=== PATIENT | male | born 1970 | race Caucasian/White ===

== ENCOUNTER 2017-03-18 06:52 | Emergency (ER) | payer OTHER ==
[2017-03-18 07:19] LABS: BASO % 0.3 % (0.2-1.2); EOS # 0.4 10_X3_uL (0.0-0.5); EOS % 4.7 % (0.8-7.0); GRAN # 5.2 10_X3_uL (1.8-5.4); GRAN % 58.9 % (34.0-67.9); HEMATOCRIT 43.3 % (40-51); HEMOGLOBIN 14.8 g/dL (13.7-17.5); LYMPH # 2.5 10_X3_uL (1.3-3.6); LYMPH % 28.3 % (21.8-53.1); MEAN CORPUSCULAR HEMOGLOBIN 30.5 pg (27.0-33.0); MEAN CORPUSCULAR HGB CONC 34.2 g/dL (32.0-36.0); MEAN CORPUSCULAR VOLUME 89.3 fL (79-92); MEAN PLATELET VOLUME 10.7 fl (7.5-11.5); MONO # 0.7 10_X3_uL (0.3-0.8); MONO % 7.8 % (5.3-12.2); PLATELET COUNT 189 x10_3/uL (163-337); RED BLOOD COUNT 4.85 x10_6/uL (4.6-6.1); RED CELL DISTRIBUTION WIDTH 13.3 % (11.6-14.4); WHITE BLOOD COUNT 8.8 x10_3/uL (4.2-9.1)
[2017-03-18 07:32] LABS: BLOOD UREA NITROGEN 20 mg/dL (7-18); CARBON DIOXIDE 21 mmol/L (21-32); CREATINE KINASE 55 U/L (35-232); GLUCOSE,RANDOM 128 mg/dL (70-99); POTASSIUM 3.2 mmol/L (3.5-5.1); SODIUM 144 mmol/L (136-145)
[2017-03-18 07:50] LABS: THYROID STIMULATING HORMONE 1.87 uIU/mL (0.34-4.82)
[2017-03-18 07:51] LABS: FREE T4 1.13 ng/dL (0.93-1.7)
== END 2017-03-18 11:45 | disposition home or self-care (01) ==
LOC: ER 06:52
PROVIDERS: Emergency Medicine
DX: R42 Dizziness and giddiness (principal); R55 Syncope and collapse; Z87.828 Personal history of other (healed) physical injury and trauma; K21.9 Gastro-esophageal reflux disease without esophagitis; J30.2 Other seasonal allergic rhinitis; R91.1 Solitary pulmonary nodule; R25.1 Tremor, unspecified; F41.9 Anxiety disorder, unspecified; H53.8 Other visual disturbances; R53.1 Weakness; Z79.1 Long term (current) use of non-steroidal anti-inflammatories (NSAID)
CPT/HCPCS: 36415; 70450; 80048; 82550; 82553; 84439; 84443; 85025; 93005; 99070; 99284-25